=== PATIENT | female | born 1955 | race Hispanic/Latino ===

== ENCOUNTER → 2019-10-27 | Day surgery (SDC) | payer OTHER ==
[2019-10-23 11:49] LABS: BASOPHILS # (AUTO) 0.1 (0.0-0.1); BASOPHILS % 0.9 % (0.0-1.0); EOSINOPHILS # (AUTO) 0.1 (0.0-0.4); EOSINOPHILS % 1.4 % (0.0-6.0); HEMOGLOBIN 12.2 g/dL (12.0-16.0); LYMPHOCYTES # (AUTO) 2.3 (1.0-3.2); LYMPHOCYTES % 35.1 % (18.0-39.1); MEAN CORPUSCULAR HGB CONC 30.5 g/dL (31-35); MEAN CORPUSCULAR VOLUME 85.1 fL (81-99); MONOCYTES # (AUTO) 0.6 (0.2-0.8); MONOCYTES % 8.7 % (4.4-11.3); NEUTROPHILS # (AUTO) 3.4 (2.1-6.9); NEUTROPHILS % 53.7 % (38.7-80.0); PLATELET COUNT 256 x10e3/uL (140-360); RED CELL DISTRIBUTION WIDTH 15.6 % (11.7-14.4)
[~2019-10-27] MED LIST: AMIODARONE HCL200 MG PO; BUMEX PO; CARAFATE1 GM/10 ML PO; CITALOPRAM HBR20 MG PO; CYCLOBENZAPRINE10 MG PO; ELIQUIS5 MG PO; FAMOTIDINE20 MG PO; FENTANYL CITRATE/PF 100MCG/2 ML INJ ONE; HYDRALAZINE HCL25 MG PO; IPRATROPIU0.2 MG/1 M NEB; KETAMINE HCL INJ 50 MG/ML 10 ML VIAL ONE; LASIX20 MG PO; LIPITOR10 MG PO; LISINOPRIL10 MG PO; LOPRESSOR25 MG PO; LOSARTAN POTAS100 MG PO; METOPROLOL SUCC50 MG PO; MIDAZOLAM HCL 2 MG/2 ML VIAL ONE; PROPOFOL IV EMULSION 10 MG/ML 20 ML VIAL ONE; VENLAFAXINE HCL75 M1 PO; VIT D2 PO; VITAMIN D1000 UNI1 PO; XARELTO20 MG PO
--- OUTSIDE RECORDS SUMMARY | 2019-10-27 06:15 | XMS REPORT ---
Author Author [facility] Organization [facility] Address Unknown Phone Unavailable Care Team Providers Care Machine Ii Trimmer Name Role Phone ORIN SOLIS Unavailable Unavailable Problems This patient has no known problems. Allergies, Adverse Reactions, Alerts This patient has no known allergies or adverse reactions. Medications This patient has no known medications. Encounters Start Date/Time End Date/Time [facility] ID 2018-11-05 17:33:00 Inpatient [facility] [id number] 2019-04-29 02:24:00 2019-04-28 14:42:00 Inpatient [facility] [id number] 2019-04-02 06:45:00 2019-04-02 06:45:00 Outpatient [facility] [id number] 2019-02-27 13:41:00 2019-02-27 10:12:00 Inpatient E [facility] [id number] 2018-11-21 18:10:00 2018-11-21 18:10:00 Emergency E [facility] [id number] 2018-10-31 20:42:00 2018-10-31 20:42:00 Emergency E [facility] [id number] 2018-06-24 10:31:35 2018-06-24 10:31:[address] [facility] [id number] 2018-06-20 00:00:00 2018-06-20 00:00:[address] [facility] [id number] 2018-06-06 00:00:00 2018-06-06 00:00:[address] [facility] [id number] 2018-06-03 10:44:11 2018-06-03 10:44:[address] [facility] [id number] 2018-05-27 11:40:55 2018-05-27 11:40:[address] [facility] [id number] 2018-05-23 00:00:00 2018-05-23 00:00:[address] [facility] [id number] 2018-05-21 00:00:00 2018-05-21 00:00:[address] [facility] [id number] 2018-05-15 09:24:12 2018-05-15 09:24:[address] [facility] [id number] 2018-05-09 09:40:04 2018-05-09 09:40:[address] [facility] [id number] 2018-05-01 09:28:39 2018-05-01 09:28:[address] [facility] [id number] 2018-04-22 00:00:00 2018-04-22 00:00:[address] [facility] [id number] 2018-04-22 00:00:00 2018-04-22 00:00:[address] [facility] [id number] 2018-04-18 16:19:57 2018-04-18 16:19:[address] [facility] [id number] 2018-04-05 00:00:00 2018-04-05 00:00:[address] [facility] [id number] 2018-04-04 15:44:28 2018-04-04 15:44:[address] [facility] [id number] 2018-04-04 00:00:00 2018-04-04 00:00:[address] [facility] [id number] 2018-04-04 00:00:00 2018-04-04 00:00:[address] [facility] [id number] 2018-03-29 00:00:00 2018-03-29 00:00:[address] [facility] [id number] 2018-03-27 13:26:20 2018-03-27 13:26:[address] [facility] [id number] 2018-03-20 08:39:31 2018-03-20 08:39:[address] [facility] [id number] 2018-03-19 00:00:00 2018-03-19 00:00:[address] [facility] [id number] 2018-03-15 08:08:51 2018-03-15 08:08:[address] [facility] [id number] 2018-03-07 00:00:00 2018-03-07 00:00:[address] [facility] [id number] 2018-03-06 00:00:00 2018-03-06 00:00:[address] [facility] [id number] 2018-03-05 10:16:29 2018-03-05 10:16:[address] [facility] [id number] 2018-02-27 09:49:09 2018-02-27 09:49:[address] [facility] [id number] 2017-11-26 00:00:00 2017-11-26 00:00:[address] [facility] [id number] 2017-11-15 00:00:00 2017-11-15 00:00:[address] [facility] [id number] 2017-10-19 00:00:00 2017-10-19 00:00:[address] [facility] [id number] 2017-10-16 00:00:00 2017-10-16 00:00:[address] [facility] [id number] 2017-09-20 00:00:00 2017-09-20 00:00:[address] [facility] [id number] 2017-09-12 09:21:29 2017-09-12 09:21:29 Outpatient [facility] [id number] 2017-09-12 00:00:00 2017-09-12 00:00:00 Outpatient [facility] [id number] 2017-09-05 00:00:00 2017-09-05 00:00:[address] [facility] [id number] 2017-08-21 10:31:27 2017-08-21 10:31:27 Outpatient [facility] [id number] 2017-08-16 00:00:00 2017-08-16 00:00:00 Outpatient [facility] [id number] 2017-08-13 00:00:00 2017-08-13 00:00:[address] [facility] [id number] 2017-08-09 12:26:49 2017-08-09 12:26:49 Outpatient [facility] [id number] 2017-07-25 11:15:03 2017-07-25 11:15:03 Outpatient [facility] [id number] 2017-07-19 00:00:00 2017-07-19 00:00:[address] [facility] [id number] 2017-07-17 00:00:00 2017-07-17 00:00:[address] [facility] [id number] 2017-07-03 10:03:43 2017-07-03 10:03:[address] [facility] [id number] 2017-07-03 00:00:00 2017-07-03 00:00:[address] [facility] [id number] 2017-06-12 00:00:00 2017-06-12 00:00:[address] [facility] [id number] 2017-06-07 09:19:27 2017-06-07 09:19:[address] [facility] [id number] 2017-06-05 11:32:31 2017-06-05 11:32:[address] [facility] [id number] 2017-06-05 09:19:18 2017-06-05 09:19:[address] [facility] [id number] 2017-06-05 08:11:11 2017-06-05 08:11:11 Outpatient [facility] [id number] 2017-05-10 07:59:33 2017-05-10 07:59:[address] [facility] [id number] 2017-05-10 00:00:00 2017-05-10 00:00:[address] [facility] [id number] 2017-05-09 09:01:53 2017-05-09 09:01:[address] [facility] [id number] 2017-05-07 12:23:58 2017-05-07 12:23:[address] [facility] [id number] 2017-04-24 00:00:00 2017-04-24 00:00:[address] [facility] [id number] 2017-04-18 00:00:00 2017-04-18 00:00:[address] [facility] [id number] 2017-03-20 00:00:00 2017-03-20 00:00:[address] [facility] [id number] 2017-03-19 11:07:03 2017-03-19 11:07:[address] [facility] [id number] 2017-03-19 09:42:47 2017-03-19 09:42:[address] [facility] [id number] 2017-03-08 00:00:00 2017-03-08 00:00:[address] [facility] [id number] 2017-03-07 00:00:00 2017-03-07 00:00:[address] [facility] [id number] 2017-02-15 08:25:08 2017-02-15 08:25:08 Outpatient [facility] [id number] 2017-02-13 12:26:54 2017-02-13 12:26:[address] [facility] [id number] 2017-02-12 12:09:20 2017-02-12 12:09:[address] [facility] [id number] 2017-01-31 00:00:00 2017-01-31 00:00:[address] [facility] [id number] 2017-01-17 00:00:00 2017-01-17 00:00:[address] [facility] [id number] 2017-01-12 11:22:53 2017-01-12 11:22:[address] [facility] [id number] 2017-01-12 00:00:00 2017-01-12 00:00:[address] [facility] [id number] 2017-01-04 11:48:15 2017-01-04 11:48:[address] [facility] [id number] 2017-01-04 10:44:46 2017-01-04 10:44:[address] [facility] [id number] 2016-12-19 14:32:20 2016-12-19 14:32:[address] [facility] [id number] 2016-12-18 00:00:00 2016-12-18 00:00:[address] [facility] [id number] 2016-12-15 15:18:55 2016-12-15 15:18:[address] [facility] [id number] 2016-12-13 00:00:00 2016-12-13 00:00:[address] [facility] [id number] 2016-12-10 00:00:00 2016-12-10 00:00:[address] [facility] [id number] 2016-12-07 00:00:00 2016-12-07 00:00:[address] [facility] [id number] 2016-11-28 11:25:42 2016-11-28 11:25:[address] [facility] [id number] 2016-11-27 00:00:00 2016-11-27 00:00:[address] [facility] [id number] 2016-11-10 11:00:25 2016-11-10 11:00:[address] [facility] [id number] 2016-11-10 10:53:16 2016-11-10 10:53:[address] [facility] [id number] 2016-11-10 08:40:16 2016-11-10 08:40:[address] [facility] [id number] 2016-10-23 14:56:30 2016-10-23 14:56:[address] [facility] [id number] 2016-10-18 10:22:04 2016-10-18 10:22:[address] [facility] [id number] 2016-10-13 09:38:21 2016-10-13 09:38:[address] [facility] [id number] 2016-10-13 08:44:39 2016-10-13 08:44:[address] [facility] [id number] 2016-10-03 14:19:59 2016-10-03 14:19:[address] [facility] [id number] 2016-10-03 13:13:57 2016-10-03 13:13:[address] [facility] [id number] 2016-10-02 08:51:42 2016-10-02 08:51:[address] [facility] [id number] 2016-09-11 14:47:07 2016-09-11 14:47:[address] [facility] [id number] 2016-08-25 09:10:16 2016-08-25 09:10:[address] [facility] [id number] 2016-08-16 13:15:47 2016-08-16 13:15:[address] [facility] [id number] 2016-08-10 14:01:52 2016-08-10 14:01:[address] [facility] [id number] 2016-08-10 12:59:53 2016-08-10 12:59:[address] [facility] [id number] 2016-08-02 09:19:07 2016-08-02 09:19:[address] [facility] [id number] 2016-08-02 00:00:00 2016-08-02 00:00:[address] [facility] [id number] 2016-07-27 11:40:29 2016-07-27 11:40:[address] [facility] [id number] 2016-07-19 14:44:36 2016-07-19 14:44:[address] [facility] [id number] 2016-07-19 09:04:23 2016-07-19 09:04:[address] [facility] [id number] Results Test Description Test Time Test Comments Text Results Atomic Results Result Comments CT, HEART, WO 2019-07-04 11:16:00 Addendum Beg insREPORT STATUS:A Addendum: As suggested below, dedicated breast imaging workup is recommended for the right breast mass. Additionally, ultrasound is also recommen ded for thyroid nodule. I agree with the remainder of the nonvascular findings reported below. Signed: Renny Can MDReport Verified Date/Time: 07/04/2019 11:16:07 Reading Location: [facility] Radiology Reading RoomAddendum EndsFINAL REPORT CT angiography of the pulmonary veins, 01 July 2019 INDICATION: This is a 64 years old female with history of atrial fibrillation presented here for pulmonary vein ostial mapping. This study is performed in an attempt to avoid invasive procedure. TECHNIQUE: Spiral acquisition during intravenous contrast administration using a Demi multidetector CT scanner without prospective ECG triggering. Multiplanar reconstructions were performed interactively by the interpreting physician using an independent ([employer]) workstation. Please refer to the contrast sheet scanned in the [employer] system for the amount and route of contrast given. This exam was performed according to our departmental dose-optimisation programme, which includes automated exposure control, adjustment of the mA and/or kV according to patient size and/or use of iterative reconstruction technique. Dose modulation, iterative reconstruction, and/or weight based adjustment of the mA/kV was utilized to reduce the radiation dose to as low as reasonably achievable. FINDINGS: VASCULAR: The pericardium appears normal. No pericardial effusion is identified. The central pulmonary art javy is normal in calibre. There is no evidence of central pulmonary artery embolism. The thoracic aorta is normal in course, calibre, and contour. Scattered calcification is seen in the descending thoracic aorta. There is no evidence for acute aortic pathology. The arch vessel branching pattern is normal, and the origins of the arch branch vessels are all widely patent. The left common carotid artery arises from the innominate artery, a normal variant. The cardiac chambers demonstrate normal atrioventricular and ventriculoarterial concordance, and systemic and pulmonary venous return. The left ventricle is normal in size. The coronary artery origins are normal. Scattered calcification is identified in the proximal LAD, proximal and mid LCx and along the RCA pathway. Left atrial enlargement is identified. In the available images, the left atrial appendage is free thrombus. Pulmonary vein morphology is normal with pairs of pulmonary veins on each side of the left atrium. There is no evidence for pulmonary vein stenosis. Quantitative pulmonary vein ostial mapping (measured utilizing MPR analysis) is as follows: Pulmonary vein Major axis Minor axis Cross-sectional area Right upper 20 mm 19 mm 3.2 qd4Ruwli lower 18 mm 17 mm 2.8 ts4Pbjp upper 17 mm 12 mm 1.6 et8Eqdf lower 17 mm 16 mm 1.9 cm2 NON-VASCULAR: Enlargement of the right thyroid lobe is identified with associated hypodensity, for example at image 7 measures up to 2.7 cm in diameter. Dedicated thyroid ultrasound scan should be performed for further tissue characterisation. The chest wall and mediastinum appears normal. Some scattered lymph nodes are seen, consider nonspecific in nature. CT is not optimised in the assessment of breast structure. A partially visualised soft tissue densities identified in the right breast, image 29, measure at least 4.6 x 2.2 cm in diameter. Please correlate with clinical examination, mammography, and if needed with ultrasound scan. In the lung windows, no endobronchial lesion is seen, and no pleural effusions identified. Some subsegmental atelectatic jeffries ges are seen. No pleural effusion is identified. Limited images of the upper abdomen reveals no gross abnormality. Patient is post cholecystectomy. No acute bony pathology is identified. Degenerative changes is noted. IMPRESSIONS: 1. The left atrium is enlarged. No thrombus is visualized in the left atrial appendage. 2. Pulmonary vein morphology is normal with pairs of pulmonary veins bilaterally. There is no evidence for pulmonary vein stenosis. Quantitative pulmonary vein ostial mapping is as noted above. 3. Normal thoracic aorta. Scattered calcification is seen in the descending thoracic aorta. 4. No acute pulmonary pathology. No pulmonary nodule is identified. 5. Other findings as described above. Enlargement of the right thyroid lobe is identified with associated hypodensity, for example at image 7 measures up to 2.7 cm in diameter. Dedicated thyroid ultrasound scan should be performed for further tissue characterisation. CT is not optimised in the assessment of breast structure. A partially visualised soft tissue densities identified in the right breast, image 29, measures at least 4.6 x 2.2 cm in diameter. Please correlate with clinical examination, mammography, and if needed with ultrasound scan. 6. An addendum will be dictated regarding the non-vascular findings by the Angiographer Radiologist. Signed: Minor Harveyort Verified Date/Time: 07/01/2019 12:23:21 D GAS, ARTERIAL 2019-07-04 11:05:00 PH ARTERIAL (BEAKER) (test code = 383) 7.40 7.35-7.45 PCO2 ARTERIAL (BEAKER) (test code = 384) 61 mmHg 35-45 PO2 ARTERIAL (BEAKER) (test code = 385) 59 mmHg 80-90 O2 SATURATION ARTERIAL (BEAKER) (test code = 386) 89.7 % 96.0-97.0 HCO3 ARTERIAL (BEAKER) (test code = 388) 37 mmol/L 21-29 BASE EXCESS ARTERIAL (BEAKER) (test code = 387) 10.2 mmol/L -2.0-3.0 PATIENT TEMPERATURE (BEAKER) (test code = 1818) 37.0 C FIO2 (BEAKER) (test code = 1819) 21.0 % [id number] 08:49:00* Test Item Value Reference Range Comments PHOSPHORUS (BEAKER) (test code = 604) 3.0 mg/dL 2.3-4.7 Typing Pool Supervisor ID - [id number] 08:49:00* Test Item Value Reference Range Comments MAGNESIUM (BEAKER) (test code = 627) 1.5 mg/dL 1.6-2.6 Typing Pool Supervisor ID - NTPBASIC METABOLIC [id number] 08:49:00* Test Item Value Reference Range Comments SODIUM (BEAKER) (test code = 381) 140 meq/L 136-145 POTASSIUM (BEAKER) (test code = 379) 3.6 meq/L 3.5-5.1 CHLORIDE (BEAKER) (test code = 382) 98 meq/L 98-107 CO2 (BEAKER) (test code = 355) 35 meq/L 22-29 BLOOD UREA NITROGEN (BEAKER) (test code = 354) 18 mg/dL 7 -21 CREATININE (BEAKER) (test code = 358) 0.77 mg/dL 0.57-1.25 GLUCOSE RANDOM (BEAKER) (test code = 652) 106 mg/dL 70-105 CALCIUM (BEAKER) (test code = 697) 8.4 mg/dL 8.4-10.2 EGFR (BEAKER) (test code = 1092) 76 mL/min/1.73 sq m ESTIMATED GFR IS NOT ACCURATE CREATININE CLEARANCE IN PREDICTING GLOMERULAR FILTRATION RATE. ESTIMATED GFR IS NOT APPLICABLE FOR DIALYSIS PATIENTS. Typing Pool Supervisor ID - NTPCBC W/PLT COUNT & AUTO [id number] 05:55:00* Test Item Value Reference Range Comments WHITE BLOOD CELL COUNT (BEAKER) (test code = 775) 5.3 K/ L 3.5-10.5 RED BLOOD CELL COUNT (BEAKER) (test code = 761) 3.98 M/ L 3.93-5.22 HEMOGLOBIN (BEAKER) (test code = 410) 10.9 GM/DL 11.2-15.7 HEMATOCRIT (BEAKER) (test code = 411) 35.8 % 34.1-44.9 MEAN CORPUSCULAR VOLUME (BEAKER) (test code = 753) 89.9 fL 79.4-94.8 MEAN CORPUSCULAR HEMOGLOBIN (BEAKER) (test code = 751) 27.4 pg 25.6-32.2 MEAN CORPUSCULAR HEMOGLOBIN CONC (BEAKER) (test code = 752) 30.4 GM/DL 32.2-35.5 RED CELL DISTRIBUTION WIDTH (BEAKER) (test code = 412) 16.8 % 11.7-14.4 PLATELET COUNT (BEAKER) (test code = 756) 172 K/CU MM 150-45 0 MEAN PLATELET VOLUME (BEAKER) (test code = 754) 11.2 fL 9.4-12.3 NUCLEATED RED BLOOD CELLS (BEAKER) (test code = 413) 0 /100 WBC 0-0 NEUTROPHILS RELATIVE PERCENT (BEAKER) (test code = 429) 52 % LYMPHOCYTES RELATIVE PERCENT (BEAKER) (test code = 430) 34 % MONOCYTES RELATIVE PERCENT (BEAKER) (test code = 431) 12 % EOSINOPHILS RELATIVE PERCENT (BEAKER) (test code = 432) 2 % BASOPHILS RELATIVE PERCENT (BEAKER) (test code = 437) 1 % NEUTROPHILS ABSOLUTE COUNT (BEAKER) (test code = 670) 2.75 K/ L 1.56-6.13 LYMPHOCYTES ABSOLUTE COUNT (BEAKER) (test code = 414) 1.79 K/ L 1.18-3.74 MONOCYTES ABSOLUTE COUNT (BEAKER) (test code = 415) 0.66 K/ L 0.24-0.36 EOSINOPHILS ABSOLUTE COUNT (BEAKER) (test code = 416) 0.08 K/ L 0.04-0.36 BASOPHILS ABSOLUTE COUNT (BEAKER) (test code = 417) 0.05 K/ L 0.01-0.08 IMMATURE GRANULOCYTES-RELATIVE PERCENT (BEAKER) (test code = 280 1) 0 % 0-1 POCT-GLUCOSE [id number] 18:56:00* Test Item Value Reference Range Comments POC-GLUCOSE METER (BEAKER) (test code = 1538) 93 mg/dL 70 -110 : TESTED AT [place] [id number] [facility], [id number]: Typing Pool Supervisor/Batch Room Technician ID = [id number] for SUZAN MONTENEGRO POCT-GLUCOSE [id number] 11:36:00* Test Item Value Reference Range Comments POC-GLUCOSE METER (BEAKER) (test code = 1538) 165 mg/dL 70 -110 : TESTED AT [place] [id number] [facility], [address]: Typing Pool Supervisor/Batch Room Technician ID = [id number] for SUZAN MONTENEGRO HEMOGLOBIN [id number] 07:41:00* Test Item Value Reference Range Comments HEMOGLOBIN A1C (BEAKER) (test code = 368) 6.3 % 4.3-6. 1 POCT-GLUCOSE [id number] 05:44:00* Test Item Value Reference Range Comments POC-GLUCOSE METER (BEAKER) (test code = 1538) 110 mg/dL 70 -110 : TESTED AT [place] [id number] [facility], [address]: Typing Pool Supervisor/Batch Room Technician ID = [id number] for ASHLIE GOLDSMITH [id number] 05:26:00* Test Item Value Reference Range Comments FERRITIN (BEAKER) (test code = 361) 18 ng/mL 5-275 VITAMIN B12 AND [id number] 05:26:00* Test Item Value Reference Range Comments VITAMIN B12 (BEAKER) (test code = 774) 362 pg/mL 213-816 FOLATE (BEAKER) (test code = 362) 14.3 ng/mL >=7.0 B-TYPE NATRIURETIC FACTOR (BNP)2019-07-03 05:00:00* Test Item Value Reference Range Comments B-TYPE NATRIURETIC PEPTIDE (BEAKER) (test code = 700) 24 pg/mL 0-100 [id number] 04:53:00* Test Item Value Reference Range Comments PHOSPHORUS (BEAKER) (test code = 604) 3.8 mg/dL 2.3-4.7 [id number] 04:53:00* Test Item Value Reference Range Comments MAGNESIUM (BEAKER) (test code = 627) 1.6 mg/dL 1.6-2.6 BASIC METABOLIC [id number] 04:53:00* Test Item Value Reference Range Comments SODIUM (BEAKER) (test code = 381) 141 meq/L 136-145 POTASSIUM (BEAKER) (test code = 379) 3.4 meq/L 3.5-5.1 CHLORIDE (BEAKER) (test code = 382) 99 meq/L 98-107 CO2 (BEAKER) (test code = 355) 34 meq/L 22-29 BLOOD UREA NITROGEN (BEAKER) (test code = 354) 16 mg/dL 7 -21 CREATININE (BEAKER) (test code = 358) 0.83 mg/dL 0.57-1.25 GLUCOSE RANDOM (BEAKER) (test code = 652) 110 mg/dL 70-105 CALCIUM (BEAKER) (test code = 697) 8.5 mg/dL 8.4-10.2 EGFR (BEAKER) (test code = 1092) 69 mL/min/1.73 sq m ESTIMATED GFR IS NOT ACCURATE CREATININE CLEARANCE IN PREDICTING GLOMERULAR FILTRATION RATE. ESTIMATED GFR IS NOT APPLICABLE FOR DIALYSIS PATIENTS. [id number] 04:50:00* Test Item Value Reference Range Comments TRANSFERRIN (BEAKER) (test code = 541) 279 mg/dL 174-382 IRON, TIBC, % SAT. (WITHOUT FERRITIN)2019-07-03 04:50:00* Test Item Value Reference Range Comments IRON (BEAKER) (test code = 547) 114.0 ug/dL 40.0-160.0 TOTAL IRON BINDING CAPACITY (BEAKER) (test code = 769) 349 ug/dL 250-450 IRON % SATURATION (2) (BEAKER) (test code = 2590) 33 % 20-55 BLOOD GAS, [id number] 04:49:00* Test Item Value Reference Range Comments PH ARTERIAL (BEAKER) (test code = 383) 7.37 7.35-7.45 PCO2 ARTERIAL (BEAKER) (test code = 384) 66 mmHg 35-45 PO2 ARTERIAL (BEAKER) (test code = 385) 58 mmHg 80-90 O2 SATURATION ARTERIAL (BEAKER) (test code = 386) 87.2 % 96.0-97.0 HCO3 ARTERIAL (BEAKER) (test code = 388) 37 mmol/L 21-29 BASE EXCESS ARTERIAL (BEAKER) (test code = 387) 9.8 mmol/L -2.0-3.0 PATIENT TEMPERATURE (BEAKER) (test code = 1818) 37.5 C FIO2 (BEAKER) (test code = 1819) 30.0 % RETICULOCYTE [id number] 04:29:00* Test Item Value Reference Range Comments RETICULOCYTE COUNT PCT (BEAKER) (test code = 575) 1.7 % 0.5-1.7 CBC W/PLT COUNT & AUTO [id number] 04:29:00* Test Item Value Reference Range Comments WHITE BLOOD CELL COUNT (BEAKER) (test code = 775) 6.7 K/ L 3.5-10.5 RED BLOOD CELL COUNT (BEAKER) (test code = 761) 4.19 M/ L 3.93-5.22 HEMOGLOBIN (BEAKER) (test code = 410) 11.3 GM/DL 11.2-15.7 HEMATOCRIT (BEAKER) (test code = 411) 36.9 % 34.1-44.9 MEAN CORPUSCULAR VOLUME (BEAKER) (test code = 753) 88.1 fL 79.4-94.8 MEAN CORPUSCULAR HEMOGLOBIN (BEAKER) (test code = 751) 27.0 pg 25.6-32.2 MEAN CORPUSCULAR HEMOGLOBIN CONC (BEAKER) (test code = 752) 30.6 GM/DL 32.2-35.5 RED CELL DISTRIBUTION WIDTH (BEAKER) (test code = 412) 16.9 % 11.7-14.4 PLATELET COUNT (BEAKER) (test code = 756) 191 K/CU MM 150-45 0 MEAN PLATELET VOLUME (BEAKER) (test code = 754) 10.4 fL 9.4-12.3 NUCLEATED RED BLOOD CELLS (BEAKER) (test code = 413) 0 /100 WBC 0-0 NEUTROPHILS RELATIVE PERCENT (BEAKER) (test code = 429) 66 % LYMPHOCYTES RELATIVE PERCENT (BEAKER) (test code = 430) 23 % MONOCYTES RELATIVE PERCENT (BEAKER) (test code = 431) 9 % EOSINOPHILS RELATIVE PERCENT (BEAKER) (test code = 432) 1 % BASOPHILS RELATIVE PERCENT (BEAKER) (test code = 437) 1 % NEUTROPHILS ABSOLUTE COUNT (BEAKER) (test code = 670) 4.47 K/ L 1.56-6.13 LYMPHOCYTES ABSOLUTE COUNT (BEAKER) (test code = 414) 1.57 K/ L 1.18-3.74 MONOCYTES ABSOLUTE COUNT (BEAKER) (test code = 415) 0.59 K/ L 0.24-0.36 EOSINOPHILS ABSOLUTE COUNT (BEAKER) (test code = 416) 0.05 K/ L 0.04-0.36 BASOPHILS ABSOLUTE COUNT (BEAKER) (test code = 417) 0.05 K/ L 0.01-0.08 IMMATURE GRANULOCYTES-RELATIVE PERCENT (BEAKER) (test code = 280 1) 0 % 0-1 [id number] 23:52:00* Test Item Value Reference Range Comments PHOSPHORUS (BEAKER) (test code = 604) 3.8 mg/dL 2.3-4.7 [id number] 23:52:00* Test Item Value Reference Range Comments MAGNESIUM (BEAKER) (test code = 627) 1.5 mg/dL 1.6-2.6 BASIC METABOLIC [id number] 23:52:00* Test Item Value Reference Range Comments SODIUM (BEAKER) (test code = 381) 142 meq/L 136-145 POTASSIUM (BEAKER) (test code = 379) 3.4 meq/L 3.5-5.1 CHLORIDE (BEAKER) (test code = 382) 100 meq/L 98-107 CO2 (BEAKER) (test code = 355) 34 meq/L 22-29 BLOOD UREA NITROGEN (BEAKER) (test code = 354) 15 mg/dL 7 -21 CREATININE (BEAKER) (test code = 358) 0.78 mg/dL 0.57-1.25 GLUCOSE RANDOM (BEAKER) (test code = 652) 101 mg/dL 70-105 CALCIUM (BEAKER) (test code = 697) 8.2 mg/dL 8.4-10.2 EGFR (BEAKER) (test code = 1092) 75 mL/min/1.73 sq m ESTIMATED GFR IS NOT ACCURATE CREATININE CLEARANCE IN PREDICTING GLOMERULAR FILTRATION RATE. ESTIMATED GFR IS NOT APPLICABLE FOR DIALYSIS PATIENTS. BLOOD GAS, [id number] 23:41:00* Test Item Value Reference Range Comments PH ARTERIAL (BEAKER) (test code = 383) 7.42 7.35-7.45 PCO2 ARTERIAL (BEAKER) (test code = 384) 57 mmHg 35-45 PO2 ARTERIAL (BEAKER) (test code = 385) 84 mmHg 80-90 O2 SATURATION ARTERIAL (BEAKER) (test code = 386) 96.1 % 96.0-97.0 HCO3 ARTERIAL (BEAKER) (test code = 388) 36 mmol/L 21-29 BASE EXCESS ARTERIAL (BEAKER) (test code = 387) 9.9 mmol/L -2.0-3.0 PATIENT TEMPERATURE (BEAKER) (test code = 1818) 37.5 C FIO2 (BEAKER) (test code = 1819) 30.0 % CBC (HEMOGRAM ONLY)[id number] 23:35:00* Test Item Value Reference Range Comments WHITE BLOOD CELL COUNT (BEAKER) (test code = 775) 7.0 K/ L 3.5-10.5 RED BLOOD CELL COUNT (BEAKER) (test code = 761) 4.33 M/ L 3.93-5.22 HEMOGLOBIN (BEAKER) (test code = 410) 11.8 GM/DL 11.2-15.7 HEMATOCRIT (BEAKER) (test code = 411) 37.9 % 34.1-44.9 MEAN CORPUSCULAR VOLUME (BEAKER) (test code = 753) 87.5 fL 79.4-94.8 MEAN CORPUSCULAR HEMOGLOBIN (BEAKER) (test code = 751) 27.3 pg 25.6-32.2 MEAN CORPUSCULAR HEMOGLOBIN CONC (BEAKER) (test code = 752) 31.1 GM/DL 32.2-35.5 RED CELL DISTRIBUTION WIDTH (BEAKER) (test code = 412) 16.5 % 11.7-14.4 PLATELET COUNT (BEAKER) (test code = 756) 197 K/CU MM 150-45 0 MEAN PLATELET VOLUME (BEAKER) (test code = 754) 10.7 fL 9.4-12.3 NUCLEATED RED BLOOD CELLS (BEAKER) (test code = 413) 0 /100 WBC 0-0 [id number] 16:44:00* Test Item Value Reference Range Comments ACTIVATED CLOTTING TIME (BEAKER) (test code = 441) 131 sec Reference Range: 74-137 seconds, Baseline/TESTED AT [facility] [address] [facility] [address] BLOOD GAS, [id number] 15:54:00* Test Item Value Reference Range Comments PH ARTERIAL (BEAKER) (test code = 383) 7.36 7.35-7.45 PCO2 ARTERIAL (BEAKER) (test code = 384) 62 mmHg 35-45 PO2 ARTERIAL (BEAKER) (test code = 385) 152 mmHg 80-90 O2 SATURATION ARTERIAL (BEAKER) (test code = 386) 98.8 % 96.0-97.0 HCO3 ARTERIAL (BEAKER) (test code = 388) 34 mmol/L 21-29 BASE EXCESS ARTERIAL (BEAKER) (test code = 387) 6.7 mmol/L -2.0-3.0 PATIENT TEMPERATURE (BEAKER) (test code = 1818) 37.0 C BASIC METABOLIC [id number] 14:07:00* Test Item Value Reference Range Comments SODIUM (BEAKER) (test code = 381) 143 meq/L 136-145 POTASSIUM (BEAKER) (test code = 379) 3.1 meq/L 3.5-5.1 CHLORIDE (BEAKER) (test code = 382) 100 meq/L 98-107 CO2 (BEAKER) (test code = 355) 33 meq/L 22-29 BLOOD UREA NITROGEN (BEAKER) (test code = 354) 13 mg/dL 7 -21 CREATININE (BEAKER) (test code = 358) 0.73 mg/dL 0.57-1.25 GLUCOSE RANDOM (BEAKER) (test code = 652) 107 mg/dL 70-105 CALCIUM (BEAKER) (test code = 697) 8.7 mg/dL 8.4-10.2 EGFR (BEAKER) (test code = 1092) 81 mL/min/1.73 sq m ESTIMATED GFR IS NOT ACCURATE CREATININE CLEARANCE IN PREDICTING GLOMERULAR FILTRATION RATE. ESTIMATED GFR IS NOT APPLICABLE FOR DIALYSIS PATIENTS. BLOOD GAS, [id number] 13:35:00* Test Item Value Reference Range Comments PH ARTERIAL (BEAKER) (test code = 383) 7.31 7.35-7.45 PCO2 ARTERIAL (BEAKER) (test code = 384) 69 mmHg 35-45 PO2 ARTERIAL (BEAKER) (test code = 385) 92 mmHg 80-90 O2 SATURATION ARTERIAL (BEAKER) (test code = 386) 96.1 % 96.0-97.0 HCO3 ARTERIAL (BEAKER) (test code = 388) 34 mmol/L 21-29 BASE EXCESS ARTERIAL (BEAKER) (test code = 387) 5.8 mmol/L -2.0-3.0 PATIENT TEMPERATURE (BEAKER) (test code = 1818) 37.0 C FIO2 (BEAKER) (test code = 1819) 50.0 % [id number] 13:20:00* Test Item Value Reference Range Comments ACTIVATED CLOTTING TIME (BEAKER) (test code = 441) 164 sec Reference Range: 74-137 seconds, Baseline/TESTED AT [facility] [address] [place] [address] BASIC METABOLIC [id number] 13:00:00* Test Item Value Reference Range Comments SODIUM (BEAKER) (test code = 381) 143 meq/L 136-145 POTASSIUM (BEAKER) (test code = 379) 3.0 meq/L 3.5-5.1 CHLORIDE (BEAKER) (test code = 382) 103 meq/L 98-107 CO2 (BEAKER) (test code = 355) 31 meq/L 22-29 BLOOD UREA NITROGEN (BEAKER) (test code = 354) 13 mg/dL 7 -21 CREATININE (BEAKER) (test code = 358) 0.73 mg/dL 0.57-1.25 GLUCOSE RANDOM (BEAKER) (test code = 652) 140 mg/dL 70-105 CALCIUM (BEAKER) (test code = 697) 8.0 mg/dL 8.4-10.2 EGFR (BEAKER) (test code = 1092) 81 mL/min/1.73 sq m ESTIMATED GFR IS NOT ACCURATE CREATININE CLEARANCE IN PREDICTING GLOMERULAR FILTRATION RATE. ESTIMATED GFR IS NOT APPLICABLE FOR DIALYSIS PATIENTS. [id number] 11:36:00* Test Item Value Reference Range Comments ACTIVATED CLOTTING TIME (BEAKER) (test code = 441) 296 sec Reference Range: 74-137 seconds, Baseline/TESTED AT [facility] [address] [facility] [address] BLOOD GAS, [id number] 11:15:00* Test Item Value Reference Range Comments PH ARTERIAL (BEAKER) (test code = 383) 7.54 7.35-7.45 PCO2 ARTERIAL (BEAKER) (test code = 384) 32 mmHg 35-45 PO2 ARTERIAL (BEAKER) (test code = 385) 72 mmHg 80-90 O2 SATURATION ARTERIAL (BEAKER) (test code = 386) 96.6 % 96.0-97.0 HCO3 ARTERIAL (BEAKER) (test code = 388) 28 mmol/L 21-29 BASE EXCESS ARTERIAL (BEAKER) (test code = 387) 4.8 mmol/L -2.0-3.0 PATIENT TEMPERATURE (BEAKER) (test code = 1818) 36.1 C FIO2 (BEAKER) (test code = 1819) 50.0 % POTASSIUM-STAT [id number] 11:15:00* Test Item Value Reference Range Comments POTASSIUM (BEAKER) (test code = 379) 2.7 meq/L 3.6-5.5 HGB/HCT (H&H) - STAT [id number] 11:15:00* Test Item Value Reference Range Comments HEMOGLOBIN (BEAKER) (test code = 410) 10.4 g/dL 12.0-15.0 HEMATOCRIT (BEAKER) (test code = 411) 31.0 % 36.0-45.0 GLUCOSE-STAT [id number] 11:14:00* Test Item Value Reference Range Comments GLUCOSE RANDOM (BEAKER) (test code = 652) 105 mg/dL 70-110 SODIUM NA-STAT [id number] 11:14:00* Test Item Value Reference Range Comments SODIUM (BEAKER) (test code = 381) 141 meq/L 135-148 [id number] 11:09:00* Test Item Value Reference Range Comments ACTIVATED CLOTTING TIME (BEAKER) (test code = 441) 285 sec Reference Range: 74-137 seconds, Baseline/TESTED AT [facility] [address] [facility] [address] [id number] 10:46:00* Test Item Value Reference Range Comments ACTIVATED CLOTTING TIME (BEAKER) (test code = 441) 279 sec Reference Range: 74-137 seconds, Baseline/TESTED AT [place] [id number] [facility] [address] [id number] 10:34:00* Test Item Value Reference Range Comments ACTIVATED CLOTTING TIME (BEAKER) (test code = 441) 252 sec Reference Range: 74-137 seconds, Baseline/TESTED AT [address] [address] [id number] 10:34:00* Test Item Value Reference Range Comments ACTIVATED CLOTTING TIME (BEAKER) (test code = 441) 208 sec Reference Range: 74-137 seconds, Baseline/TESTED AT [place] [id number] [facility] [address] [id number] 10:03:00* Test Item Value Reference Range Comments POTASSIUM (BEAKER) (test code = 379) 3.0 meq/L 3.5-5.1 GLUCOSE-STAT [id number] 09:02:00* Test Item Value Reference Range Comments GLUCOSE RANDOM (BEAKER) (test code = 652) 96 mg/dL 70-110 SODIUM NA-STAT [id number] 09:02:00* Test Item Value Reference Range Comments SODIUM (BEAKER) (test code = 381) 143 meq/L 135-148 BLOOD GAS, [id number] 09:02:00* Test Item Value Reference Range Comments PH ARTERIAL (BEAKER) (test code = 383) 7.51 7.35-7.45 PCO2 ARTERIAL (BEAKER) (test code = 384) 38 mmHg 35-45 PO2 ARTERIAL (BEAKER) (test code = 385) 224 mmHg 80-90 O2 SATURATION ARTERIAL (BEAKER) (test code = 386) 99.6 % 96.0-97.0 HCO3 ARTERIAL (BEAKER) (test code = 388) 30 mmol/L 21-29 BASE EXCESS ARTERIAL (BEAKER) (test code = 387) 6.2 mmol/L -2.0-3.0 PATIENT TEMPERATURE (BEAKER) (test code = 1818) 36.6 C FIO2 (BEAKER) (test code = 1819) 90.0 % POTASSIUM-STAT [id number] 09:02:00* Test Item Value Reference Range Comments POTASSIUM (BEAKER) (test code = 379) 2.7 meq/L 3.6-5.5 HGB/HCT (H&H) - STAT [id number] 09:02:00* Test Item Value Reference Range Comments HEMOGLOBIN (BEAKER) (test code = 410) 11.5 g/dL 12.0-15.0 HEMATOCRIT (BEAKER) (test code = 411) 34.0 % 36.0-45.0 [id number] 07:45:00* Test Item Value Reference Range Comments MAGNESIUM (BEAKER) (test code = 627) 1.7 mg/dL 1.6-2.6 HEPATIC FUNCTION [id number] 07:45:00* Test Item Value Reference Range Comments TOTAL PROTEIN (BEAKER) (test code = 770) 6.3 gm/dL 6.0-8.3 ALBUMIN (BEAKER) (test code = 1145) 3.9 g/dL 3.5-5.0 BILIRUBIN TOTAL (BEAKER) (test code = 377) 0.6 mg/dL 0.2-1 .2 BILIRUBIN DIRECT (BEAKER) (test code = 706) 0.3 mg/dL 0.1- 0.5 ALKALINE PHOSPHATASE (BEAKER) (test code = 346) 58 U/L 40-150 AST (SGOT) (BEAKER) (test code = 353) 26 U/L 5-34 ALT (SGPT) (BEAKER) (test code = 347) 26 U/L 6-55 COMPREHENSIVE METABOLIC [id number] 07:45:00* Test Item Value Reference Range Comments TOTAL PROTEIN (BEAKER) (test code = 770) 6.3 gm/dL 6.0-8.3 ALBUMIN (BEAKER) (test code = 1145) 3.9 g/dL 3.5-5.0 ALKALINE PHOSPHATASE (BEAKER) (test code = 346) 58 U/L 40-150 BILIRUBIN TOTAL (BEAKER) (test code = 377) 0.6 mg/dL 0.2-1 .2 SODIUM (BEAKER) (test code = 381) 142 meq/L 136-145 POTASSIUM (BEAKER) (test code = 379) 3.3 meq/L 3.5-5.1 CHLORIDE (BEAKER) (test code = 382) 99 meq/L 98-107 CO2 (BEAKER) (test code = 355) 35 meq/L 22-29 BLOOD UREA NITROGEN (BEAKER) (test code = 354) 11 mg/dL 7 -21 CREATININE (BEAKER) (test code = 358) 0.63 mg/dL 0.57-1.25 GLUCOSE RANDOM (BEAKER) (test code = 652) 104 mg/dL 70-105 CALCIUM (BEAKER) (test code = 697) 8.7 mg/dL 8.4-10.2 AST (SGOT) (BEAKER) (test code = 353) 26 U/L 5-34 ALT (SGPT) (BEAKER) (test code = 347) 26 U/L 6-55 EGFR (BEAKER) (test code = 1092) 95 mL/min/1.73 sq m ESTIMATED GFR IS NOT ACCURATE CREATININE CLEARANCE IN PREDICTING GLOMERULAR FILTRATION RATE. ESTIMATED GFR IS NOT APPLICABLE FOR DIALYSIS PATIENTS. [id number] 07:33:00* Test Item Value Reference Range Comments PARTIAL THROMBOPLASTIN TIME (BEAKER) (test code = 760) 25.7 seco nds 22.5-36.0 CBC W/PLT COUNT & AUTO [id number] 07:18:00* Test Item Value Reference Range Comments WHITE BLOOD CELL COUNT (BEAKER) (test code = 775) 6.1 K/ L 3.5-10.5 RED BLOOD CELL COUNT (BEAKER) (test code = 761) 4.50 M/ L 3.93-5.22 HEMOGLOBIN (BEAKER) (test code = 410) 12.3 GM/DL 11.2-15.7 HEMATOCRIT (BEAKER) (test code = 411) 39.4 % 34.1-44.9 MEAN CORPUSCULAR VOLUME (BEAKER) (test code = 753) 87.6 fL 79.4-94.8 MEAN CORPUSCULAR HEMOGLOBIN (BEAKER) (test code = 751) 27.3 pg 25.6-32.2 MEAN CORPUSCULAR HEMOGLOBIN CONC (BEAKER) (test code = 752) 31.2 GM/DL 32.2-35.5 RED CELL DISTRIBUTION WIDTH (BEAKER) (test code = 412) 16.1 % 11.7-14.4 PLATELET COUNT (BEAKER) (test code = 756) 216 K/CU MM 150-45 0 MEAN PLATELET VOLUME (BEAKER) (test code = 754) 10.8 fL 9.4-12.3 NUCLEATED RED BLOOD CELLS (BEAKER) (test code = 413) 0 /100 WBC 0-0 NEUTROPHILS RELATIVE PERCENT (BEAKER) (test code = 429) 52 % LYMPHOCYTES RELATIVE PERCENT (BEAKER) (test code = 430) 37 % MONOCYTES RELATIVE PERCENT (BEAKER) (test code = 431) 9 % EOSINOPHILS RELATIVE PERCENT (BEAKER) (test code = 432) 2 % BASOPHILS RELATIVE PERCENT (BEAKER) (test code = 437) 1 % NEUTROPHILS ABSOLUTE COUNT (BEAKER) (test code = 670) 3.18 K/ L 1.56-6.13 LYMPHOCYTES ABSOLUTE COUNT (BEAKER) (test code = 414) 2.24 K/ L 1.18-3.74 MONOCYTES ABSOLUTE COUNT (BEAKER) (test code = 415) 0.55 K/ L 0.24-0.36 EOSINOPHILS ABSOLUTE COUNT (BEAKER) (test code = 416) 0.10 K/ L 0.04-0.36 BASOPHILS ABSOLUTE COUNT (BEAKER) (test code = 417) 0.06 K/ L 0.01-0.08 IMMATURE GRANULOCYTES-RELATIVE PERCENT (BEAKER) (test code = 280 1) 0 % 0-1 [id number] 11:20:00* Test Item Value Reference Range Comments POC-CREATININE (BEAKER) (test code = 1859) 0.7 mg/dL 0.6-1 [address] [facility] [address] [facility] [address] POC-EGFR (BEAKER) (test code = 1860) 85 mL/min/1.73M2
--- NOTE | 2019-10-27 07:10 | NUR ---
SPIRITUAL CARE - Pre-Surgery Assessment: Pt in bed. Pt's son at bedside. Pt reported supportive attention from family and friends. Intervention: I provided pastoral presence, hospitality, and sympathetic listening. I acquainted pt with availability of metal milling machine operator while hospitalized. Outcome: Pt expressed appreciation for visit. No need for follow up indicated at this time. SHAUNNA [facility] Spiritual Care Department O: [phone]
[2019-10-27 08:55] VITALS: BP 113/81
--- NOTE | 2019-10-27 09:15 | Operative Report ---
DATE OF PROCEDURE: 10/27/2019 SURGEON: Parminder Tim MD PROCEDURE: EGD with esophageal dilatation and biopsies. INDICATIONS FOR EGD: Dysphagia, bloating, early satiety. MEDICATIONS: The patient was done under MAC, please see anesthesiologist's note. PROCEDURE IN DETAIL: With the patient in lateral decubitus position, a flexible fiberoptic Olympus gastroscope was introduced into the esophagus under direct visualization without any difficulty. There were some patchy erythema noted in the distal esophagus. A mild stricture was noted at the GE junction and that was dilated to size 50-Omani Salazar. The scope was then advanced with ease into the stomach. Mucosa overlying the antrum and the body revealed some patchy intense erythema and moderate edema, and biopsies were obtained and sent to stain for H pylori. An approximately 8 mm nodule was noted in the body of the stomach along the lesser curvature and that was biopsied. Pylorus was intubated with ease and the scope was advanced all the way to the second portion of the duodenum. The scope was then withdrawn slowly. Biopsies were obtained from the proximal second portion and the duodenal bulb to rule out sprue. The scope was then withdrawn back into the stomach and retroflexed and mucosa overlying the fundus and the cardia appeared to be within normal limits. The scope was then straightened out. The scope was subsequently withdrawn. The patient tolerated the procedure well. IMPRESSION: 1. Distal esophagitis, mild. 2. Esophageal stricture at GE junction, dilated to size 50-Omani Salazar. 3. Gastritis, biopsied. Biopsies sent to stain for Helicobacter pylori. 4. Gastric nodule approximately 8 mm in the body of stomach, lesser curvature, biopsied. 5. Rule out sprue. PLAN: Follow up histology. Initiate Protonix 40 mg one p.o. q.a.m. before meals. Parminder Tim MD [facility] [place] /[id number]
== END | disposition home or self-care (01) ==
LOC: OR 06:01
PROVIDERS: ATTEND Internal Medicine Gastroenterology
DX: K22.2 Esophageal obstruction (principal); K29.70 Gastritis, unspecified, without bleeding; K20.9 Esophagitis, unspecified; K31.89 Other diseases of stomach and duodenum; K21.9 Gastro-esophageal reflux disease without esophagitis; K59.09 Other constipation; J44.9 Chronic obstructive pulmonary disease, unspecified; K76.0 Fatty (change of) liver, not elsewhere classified; G47.33 Obstructive sleep apnea (adult) (pediatric); I25.10 Atherosclerotic heart disease of native coronary artery without angina pectoris; I48.91 Unspecified atrial fibrillation; I25.2 Old myocardial infarction; I10 Essential (primary) hypertension; E66.01 Morbid (severe) obesity due to excess calories; F32.9 Major depressive disorder, single episode, unspecified; F41.9 Anxiety disorder, unspecified; Z88.6 Allergy status to analgesic agent; Z01.810 Encounter for preprocedural cardiovascular examination; Z01.812 Encounter for preprocedural laboratory examination; Z11.59 Encounter for screening for other viral diseases; Z79.02 Long term (current) use of antithrombotics/antiplatelets; Z99.81 Dependence on supplemental oxygen; Z68.42 Body mass index [BMI] 45.0-49.9, adult; Z80.0 Family history of malignant neoplasm of digestive organs
CPT/HCPCS: 36415; 43239; 43450; 85025; 87635; 93005; J2250; J2704; J3010